=== PATIENT | female | born 1970 | race Caucasian/White ===

== ENCOUNTER 2019-04-14 06:01 | Emergency (ER) | payer OTHER ==
[~2019-04-14] VITALS: Ht 165.1 cm; Wt 77.1 kg
[2019-04-14] MEDS ORDERED: PRILOSEC OTC20 MG (06:29)
== END 2019-04-14 10:35 | disposition home or self-care (01) ==
LOC: ER 06:01
DX: K52.89 Other specified noninfective gastroenteritis and colitis (principal); N39.0 Urinary tract infection, site not specified; M54.89 Other dorsalgia